=== PATIENT | male | born 1970 | race African-American/Black ===

== ENCOUNTER 2020-06-06 16:25 | Emergency (ER) | payer OTHER ==
[~2020-06-06] VITALS: Ht 157.5 cm; Wt 68.0 kg
[2020-06-06] MEDS ORDERED: LIDOCAINE 1% HCL (LOCAL ANESTH.) INJ 20ML MDV ONE (18:13)
[2020-06-06 18:52] VITALS: BP 150/90
[2020-06-06] MEDS ORDERED: LIDOCAINE 1% HCL (LOCAL ANESTH.) INJ 20ML MDV ID ONE (19:00)
[2020-06-06] MEDS ORDERED: BACITRACIN TOP OINT 1 UD PKG TOP ONE (19:01)
== END 2020-06-06 19:09 | disposition home or self-care (01) ==
LOC: ER 16:25
DX: S01.81XA Laceration without foreign body of other part of head, initial encounter (principal); X58.XXXA Exposure to other specified factors, initial encounter; Y93.89 Activity, other specified; Y92.89 Other specified places as the place of occurrence of the external cause; Y99.8 Other external cause status
CPT/HCPCS: 12013; 99283; J2001